=== PATIENT | female | born 1990 | race Caucasian/White ===

== ENCOUNTER 2019-06-23 05:52 | Emergency (ER) | payer BC ==
[~2019-06-23] VITALS: Ht 182.9 cm; Wt 65.8 kg
[2019-06-23 06:00] VITALS: BP_SYST 114
--- NOTE | 2019-06-23 06:00 | NUR ---
Pt ambulatory to bed 6 for evaluation
--- NOTE | 2019-06-23 06:05 | NUR ---
Patient AOx4, ambulatory, presents to ER with complaint of intermittent stabbing right lower back pain radiating to RLQ abdominal pain 10/10 and nausea. Patient states that symptoms started early yesterday evening and resolved after about 15 minutes. Symptoms returned today at 0530. Patient states she did not medicate for pain. No other symptoms or complaints. Patient is afebrile.
--- NOTE | 2019-06-23 06:08 | NUR ---
ER MD Trivedi at bedside for medical evaluation.
[2019-06-23] MEDS ORDERED: NACL 0.9% 1,000 ML IV ONE (06:13)
[2019-06-23] MEDS ORDERED: ONDANSETRON HCL 4 MG/2 ML VIAL IVP ONE (06:15)
[2019-06-23] MEDS ORDERED: KETOROLAC TROMETHAMINE 30 MG VIAL IVP ONE (06:15)
--- NOTE | 2019-06-23 06:20 | NUR ---
# 20 gauge angiocath placed to LAC. Use of asceptic technique. Opsite placed over site. Blood return noted. Blood for lab drawn from site. Flushed with 10 cc of normal saline. No evidence of infiltration noted. Patient tolerated well.
--- NOTE | 2019-06-23 06:48 | NUR ---
Medicated per MD orders. IVF infusing with no s/s of infiltration at this time. Will cont to monitor.
[2019-06-23 07:05] LABS: BILIRUBIN,URINE NEGATIVE (NEGATIVE); BLOOD, URINE 3+ (NEGATIVE); CLARITY/URINE CLEAR (CLEAR); COLOR,URINE YELLOW (YELLOW); GLUCOSE,URINE NEGATIVE (NEGATIVE); KETONES,URINE NEGATIVE (NEGATIVE); LEUKOCYTE ESTERASE ,URINE NEGATIVE (NEGATIVE); NITRITE, URINE NEGATIVE (NEGATIVE); PH,URINE 5.5 (5.0-8.0); PROTEIN URINE NEGATIVE (NEGATIVE); UROBILINOGEN,URINE 0.2 (0.2-1.0)
[2019-06-23 07:09] LABS: BASOPHILS % (AUTO) 0.5 % (0.0-2.0); EOSINOPHILS # (AUTO) 0.2 K/uL (0.0-0.4); EOSINOPHILS % (AUTO) 2.9 % (0.0-4.0); HEMOGLOBIN 13.8 g/dL (12.0-16.0); LYMPHOCYTES # (AUTO) 2.3 K/uL (1.0-5.5); LYMPHOCYTES % (AUTO) 41.3 % (20.5-51.5); MEAN CORPUSCULAR HEMOGLOBIN 31 pg (27-31); MEAN CORPUSCULAR HGB CONC 35 % (32-36); MEAN CORPUSCULAR VOLUME 90 fL (79.0-98.0); MONOCYTES # (AUTO) 0.5 K/uL (0.0-1.0); MONOCYTES % (AUTO) 8.3 % (1.7-9.3); NEUTROPHILS # (AUTO) 2.6 K/uL (1.8-7.7); PLATELET COUNT (AUTO) 173 K/uL (130-430); RED BLOOD CELL COUNT(AUTO) 4.42 MIL/uL (4.2-6.2); RED CELL DISTRIBUTION WIDTH 12.6 % (9.0-15.0); WHITE BLOOD COUNT (AUTO) 5.6 K/uL (4.8-10.8)
--- NOTE | 2019-06-23 07:10 | NUR ---
Report given to ZORA Walls. All care endorsed.
--- NOTE | 2019-06-23 07:18 | NUR ---
Pt AAOx4 no acute distress noted.Pt is pain free.
[2019-06-23 07:23] LABS: BACTERIA,URINE FEW /HPF (None Seen); WBC,URINE 0-3 /HPF (0-3)
[2019-06-23 07:34] LABS: CALCIUM 9.3 mg/dL (8.4-11.0); CREATININE 0.88 mg/dL (0.55-1.30); POTASSIUM 3.8 mmol/L (3.5-5.1)
[2019-06-23 07:41] LABS: ALBUMIN 3.8 g/dL (3.4-4.8); TOTAL BILIRUBIN 0.6 mg/dL (0.0-1.0)
[2019-06-23 08:30] VITALS: BP_SYST 116
--- NOTE | 2019-06-23 08:30 | NUR ---
Patient given written and verbal discharge instructions and verbalizes understanding. ER MD discussed with patient the results and treatment provided. Patient in stable condition. ID arm band removed. IV catheter removed intact and dressing applied, no active bleeding. Rx of motrin,zofran,norco given. Patient educated on pain management and to follow up with PMD. Pain Scale 0. Opportunity for questions provided and answered. Medication side effect fact sheet provided.
== END 2019-06-23 08:30 | disposition home or self-care (01) ==
LOC: SED 05:52
DX: N23 Unspecified renal colic (principal); M54.5 Low back pain
CPT/HCPCS: 36415; 74176; 80053; 81000; 81025; 85025; 87040; 96374; 96375; 99284; J1885; J2405; J7030